=== PATIENT | male | born 1945 | race African-American/Black ===

== ENCOUNTER 2016-09-30 05:57 | Inpatient (IN) | payer MEDICARE, MEDICAID ==
[~2016-09-30] VITALS: Ht 182.9 cm; Wt 68.0 kg
[2016-09-30] MEDS ORDERED: MORPHINE SULFATE 4 MG/ML CPJ (NOT FOR IM USE) IV ONE (07:00)
[2016-09-30] MEDS ORDERED: ACETAMINOPHEN 325MG TABLET PO ONE (07:00)
[2016-09-30 07:22] LABS: HEMATOCRIT. 34.3 % (42.0-52.0); MEAN CORPUSCULAR HEMOGLOBIN 26.6 pg (28.0-32.0); MEAN CORPUSCULAR VOLUME 82.9 fL (80.0-94.0); PLATELET 227 x1000/uL (130-400); RED BLOOD CELL COUNT 4.14 mill/uL (4.7-6.1); RED CELL DISTRIBUTION WIDTH 18.3 % (11.6-14.6)
[2016-09-30 07:27] LABS: INR 1.1; PROTHROMBIN TIME 11.9 sec
[2016-09-30 07:34] LABS: CARBON DIOXIDE 30 mEq/L (21-32); CHLORIDE 98 mEq/L (98-107)
[2016-09-30 08:27] LABS: PLATELET ESTIMATE NORMAL
[2016-09-30] MEDS ORDERED: METRONIDAZOLE 500 MG PREMIX 100 ML IV ONE (09:15)
[2016-09-30] MEDS ORDERED: LEVOFLOXACIN 750MG PREMIX 150 ML IV ONE (09:15)
[2016-09-30] MEDS ORDERED: POTASSIUM CHLORIDE 20MEQ TABLET SR PO ONE (10:30)
[2016-09-30 12:52] VITALS: BP 105/77
[2016-09-30 12:53] VITALS: BP 105/77
[2016-09-30] MEDS ORDERED: TAMS0.4C31 PO (13:12)
[2016-09-30] MEDS ORDERED: AMLO10TA80 PO (13:15)
[2016-09-30] MEDS ORDERED: FS300 PO (13:15)
[2016-09-30] MEDS ORDERED: GABA-531 PO (13:15)
[2016-09-30] MEDS ORDERED: methadone PO (13:17)
[2016-09-30 16:00] VITALS: BP 94/55
[2016-09-30] MEDS ORDERED: METHADONE HCL 10MG TABLET PO SCH ×2 (16:30)
[2016-09-30] MEDS: AMLODIPINE 10MG TABLET PO SCH (16:30)
[2016-09-30] MEDS ORDERED: CLONIDINE 0.1MG TABLET PO PRN (16:30)
[2016-09-30] MEDS ORDERED: ONDANSETRON HCL 4MG/2ML VIAL IV PRN (16:30)
[2016-09-30] MEDS ORDERED: GUAIFENESIN 200MG/10ML SUGAR FREE UDC PO PRN (16:30)
[2016-09-30] MEDS: TAMSULOSIN HCL 0.4MG SR CAPSULE PO SCH (16:43)
[2016-09-30] MEDS: GABAPENTIN 300MG CAPSULE PO SCH (17:06)
[2016-09-30] MEDS: METHADONE HCL 10MG TABLET PO SCH (17:06)
[2016-09-30] MEDS: DEXT 5%/0.45% NACL KCL 10MEQ/L 1,000 ML IV SCH (17:26)
[2016-09-30 20:00] VITALS: BP 95/50
[2016-09-30] MEDS ORDERED: MOME13HF2 INH (21:23)
[2016-09-30] MEDS: METRONIDAZOLE 500 MG PREMIX 100 ML IV SCH (21:54)
[2016-10-01 00:05] VITALS: BP 101/68
[2016-10-01 04:00] VITALS: BP 109/64
[2016-10-01] MEDS: METRONIDAZOLE 500 MG PREMIX 100 ML IV SCH ×3 (05:31→22:58)
[2016-10-01] MEDS: DEXT 5%/0.45% NACL KCL 10MEQ/L 1,000 ML IV SCH ×2 (05:31→20:41)
[2016-10-01 06:40] LABS: HEMATOCRIT. 30.5 % (42.0-52.0); HEMOGLOBIN. 9.8 g/dL (14.0-18.0); MEAN CORPUSCULAR HEMOGLOBIN 26.4 pg (28.0-32.0); MEAN CORPUSCULAR VOLUME 82.5 fL (80.0-94.0); MEAN PLATELET VOLUME 8.3 fl (7.4-10.4); PLATELET 219 x1000/uL (130-400)
[2016-10-01] MEDS: ALBUTEROL (0.083%) 2.5MG/3ML NEB HHN SCH (07:42)
[2016-10-01 08:00] VITALS: BP 102/61
[2016-10-01 08:03] LABS: CARBON DIOXIDE 33 mEq/L (21-32); CHLORIDE 101 mEq/L (98-107)
[2016-10-01 08:10] LABS: PLATELET ESTIMATE NORMAL
[2016-10-01] MEDS: GABAPENTIN 300MG CAPSULE PO SCH (08:33)
[2016-10-01] MEDS: METHADONE HCL 10MG TABLET PO SCH (08:33)
[2016-10-01] MEDS: AMLODIPINE 10MG TABLET PO SCH (08:33)
[2016-10-01] MEDS: TAMSULOSIN HCL 0.4MG SR CAPSULE PO SCH ×2 (08:34→16:40)
[2016-10-01] MEDS: LEVOFLOXACIN 500MG PREMIX 100 ML IV SCH (08:35)
[2016-10-01] MEDS ORDERED: IPRATROPIUM/ALBUTEROL 0.5-3(2.5)MG/3ML NEB HHN PRN (10:30)
[2016-10-01 12:35] VITALS: BP 98/59
[2016-10-01] MEDS: BUDESONIDE 0.5MG/2ML NEB HHN SCH ×2 (12:57→20:08)
[2016-10-01] MEDS: IPRATROPIUM/ALBUTEROL 0.5-3(2.5)MG/3ML NEB HHN SCH ×2 (12:57→20:08)
[2016-10-01 16:00] VITALS: BP 101/63
[2016-10-01 20:00] VITALS: BP 118/81
[2016-10-02 00:03] VITALS: BP 104/60
[2016-10-02] MEDS: IPRATROPIUM/ALBUTEROL 0.5-3(2.5)MG/3ML NEB HHN SCH ×2 (01:54→21:07)
[2016-10-02 04:00] VITALS: BP 108/59
[2016-10-02] MEDS: METRONIDAZOLE 500 MG PREMIX 100 ML IV SCH ×3 (05:18→20:56)
[2016-10-02] MEDS: BUDESONIDE 0.5MG/2ML NEB HHN SCH ×3 (07:42→21:08)
[2016-10-02 08:00] VITALS: BP 124/76
[2016-10-02] MEDS: ALBUTEROL (0.083%) 2.5MG/3ML NEB HHN SCH ×2 (08:11→14:58)
[2016-10-02 08:45] LABS: HEMATOCRIT. 32.1 % (42.0-52.0); HEMOGLOBIN. 10.6 g/dL (14.0-18.0); MEAN CORPUSCULAR HEMOGLOBIN 27.2 pg (28.0-32.0); MEAN CORPUSCULAR VOLUME 82.2 fL (80.0-94.0); MEAN PLATELET VOLUME 7.6 fl (7.4-10.4); PLATELET 243 x1000/uL (130-400); RED CELL DISTRIBUTION WIDTH 17.9 % (11.6-14.6)
[2016-10-02] MEDS: LEVOFLOXACIN 500MG PREMIX 100 ML IV SCH (08:55)
[2016-10-02] MEDS: TAMSULOSIN HCL 0.4MG SR CAPSULE PO SCH ×2 (08:56→16:13)
[2016-10-02] MEDS: AMLODIPINE 10MG TABLET PO SCH (08:56)
[2016-10-02] MEDS: GABAPENTIN 300MG CAPSULE PO SCH (08:56)
[2016-10-02] MEDS: DEXT 5%/0.45% NACL KCL 10MEQ/L 1,000 ML IV SCH ×2 (08:57→22:53)
[2016-10-02] MEDS: METHADONE HCL 10MG TABLET PO SCH (08:57)
[2016-10-02 09:06] LABS: CARBON DIOXIDE 31 mEq/L (21-32); CHLORIDE 98 mEq/L (98-107)
[2016-10-02 12:00] VITALS: BP 118/67
[2016-10-02 13:33] LABS: PLATELET ESTIMATE NORMAL
[2016-10-02] MEDS ORDERED: POTASSIUM CHLORIDE 20MEQ TABLET SR PO SCH (13:45)
[2016-10-02] MEDS ORDERED: MAGNESIUM 2 G PREMIX 50 ML IV SCH (14:00)
[2016-10-02 16:00] VITALS: BP 113/62
[2016-10-02 20:00] VITALS: BP 111/68
[2016-10-03] MEDS: IPRATROPIUM/ALBUTEROL 0.5-3(2.5)MG/3ML NEB HHN SCH ×6 (00:56→20:08)
[2016-10-03] MEDS: ACETAMINOPHEN 325MG TABLET PO PRN (03:22)
[2016-10-03] MEDS: METRONIDAZOLE 500 MG PREMIX 100 ML IV SCH ×3 (05:09→21:57)
[2016-10-03 08:00] VITALS: BP 106/72
[2016-10-03] MEDS: BUDESONIDE 0.5MG/2ML NEB HHN SCH (08:16)
[2016-10-03 08:38] LABS: HEMATOCRIT. 28.3 % (42.0-52.0); HEMOGLOBIN. 9.3 g/dL (14.0-18.0); MEAN CORPUSCULAR HEMOGLOBIN 26.8 pg (28.0-32.0); MEAN CORPUSCULAR VOLUME 81.7 fL (80.0-94.0); MEAN PLATELET VOLUME 8.1 fl (7.4-10.4); PLATELET 228 x1000/uL (130-400); RED BLOOD CELL COUNT 3.47 mill/uL (4.7-6.1)
[2016-10-03 08:50] LABS: CARBON DIOXIDE 31 mEq/L (21-32); CHLORIDE 99 mEq/L (98-107)
[2016-10-03] MEDS: LEVOFLOXACIN 500MG PREMIX 100 ML IV SCH (10:31)
[2016-10-03] MEDS: TAMSULOSIN HCL 0.4MG SR CAPSULE PO SCH ×2 (10:33→18:08)
[2016-10-03] MEDS: GABAPENTIN 300MG CAPSULE PO SCH (10:34)
[2016-10-03] MEDS: METHADONE HCL 10MG TABLET PO SCH (10:34)
[2016-10-03] MEDS: AMLODIPINE 10MG TABLET PO SCH ×2 (10:35→18:03)
[2016-10-03 12:00] VITALS: BP 104/70
[2016-10-03] MEDS: DEXT 5%/0.45% NACL KCL 10MEQ/L 1,000 ML IV SCH (14:08)
[2016-10-03 14:21] LABS: PLATELET ESTIMATE NORMAL
[2016-10-03 16:00] VITALS: BP 100/72
[2016-10-03] MEDS ORDERED: CAPSAICIN 0.075% CREAM 60GM TOP PRN (18:00)
[2016-10-03 20:00] VITALS: BP 105/66
[2016-10-03] MEDS: HYDROMORPHONE HCL/PF 2MG/ML CPJ IV PRN (22:05)
[2016-10-04] VITALS: BP 111/64
[2016-10-04] MEDS: IPRATROPIUM/ALBUTEROL 0.5-3(2.5)MG/3ML NEB HHN SCH ×4 (01:43→20:44)
[2016-10-04 04:00] VITALS: BP 111/66
[2016-10-04] MEDS: ACETAMINOPHEN 325MG TABLET PO PRN (04:59)
[2016-10-04] MEDS: DEXT 5%/0.45% NACL KCL 10MEQ/L 1,000 ML IV SCH (05:54)
[2016-10-04] MEDS: METRONIDAZOLE 500 MG PREMIX 100 ML IV SCH ×3 (05:55→22:15)
[2016-10-04] MEDS: TAMSULOSIN HCL 0.4MG SR CAPSULE PO SCH ×2 (07:56→20:52)
[2016-10-04] MEDS: GABAPENTIN 300MG CAPSULE PO SCH (07:56)
[2016-10-04] MEDS: METHADONE HCL 10MG TABLET PO SCH (07:58)
[2016-10-04] MEDS: AMLODIPINE 10MG TABLET PO SCH (07:59)
[2016-10-04 08:00] VITALS: BP 101/69
[2016-10-04] MEDS: BUDESONIDE 0.5MG/2ML NEB HHN SCH (08:22)
[2016-10-04] MEDS: LEVOFLOXACIN 500MG PREMIX 100 ML IV SCH (10:04)
[2016-10-04 12:00] VITALS: BP 125/77
[2016-10-04] MEDS ORDERED: POTASSIUM CHLORIDE 20MEQ TABLET SR PO NR (12:45)
[2016-10-04 16:00] VITALS: BP 101/63
[2016-10-04 20:00] VITALS: BP 108/68
[2016-10-04] MEDS: HYDROMORPHONE HCL/PF 2MG/ML CPJ IV PRN (22:25)
[2016-10-05] VITALS: BP 102/57
[2016-10-05] MEDS: IPRATROPIUM/ALBUTEROL 0.5-3(2.5)MG/3ML NEB HHN SCH ×2 (01:00→09:33)
[2016-10-05] MEDS: DEXT 5%/0.45% NACL KCL 10MEQ/L 1,000 ML IV SCH (01:01)
[2016-10-05 04:00] VITALS: BP 115/76
[2016-10-05] MEDS: METRONIDAZOLE 500 MG PREMIX 100 ML IV SCH (06:00)
[2016-10-05 06:22] LABS: HEMATOCRIT. 28.7 % (42.0-52.0); HEMOGLOBIN. 9.4 g/dL (14.0-18.0); MEAN CORPUSCULAR HEMOGLOBIN 26.8 pg (28.0-32.0); MEAN CORPUSCULAR VOLUME 81.5 fL (80.0-94.0); MEAN PLATELET VOLUME 7.5 fl (7.4-10.4); PLATELET 257 x1000/uL (130-400); RED BLOOD CELL COUNT 3.52 mill/uL (4.7-6.1); RED CELL DISTRIBUTION WIDTH 18.3 % (11.6-14.6)
[2016-10-05 06:34] LABS: CARBON DIOXIDE 31 mEq/L (21-32); CHLORIDE 96 mEq/L (98-107)
[2016-10-05 08:00] VITALS: BP 110/69
[2016-10-05] MEDS: LEVOFLOXACIN 500MG PREMIX 100 ML IV SCH (09:00)
[2016-10-05] MEDS: AMLODIPINE 10MG TABLET PO SCH (09:00)
[2016-10-05] MEDS: GABAPENTIN 300MG CAPSULE PO SCH (09:23)
[2016-10-05] MEDS: TAMSULOSIN HCL 0.4MG SR CAPSULE PO SCH (09:24)
[2016-10-05] MEDS: METHADONE HCL 10MG TABLET PO SCH (09:25)
[2016-10-05] MEDS ORDERED: MAGNESIUM OXIDE 400MG TABLET PO SCH (11:45)
[2016-10-05 11:58] VITALS: BP 101/62
[2016-10-05 12:46] VITALS: BP 101/69
[2016-10-05 13:03] LABS: PLATELET ESTIMATE NORMAL
== END 2016-10-05 13:45 | disposition home or self-care (01) | DRG 391 ==
LOC: ER 05:58 → 7WST 10:57 → EDBEDREQSVC 11:00 → EDBEDREQ 11:00 → ENRESERV 11:31
PROVIDERS: ADMIT Hospitalist; ATTEND Hospitalist
DX: A08.4 Viral intestinal infection, unspecified (principal); E43 Unspecified severe protein-calorie malnutrition; R65.11 Systemic inflammatory response syndrome (SIRS) of non-infectious origin with acute organ dysfunction; E87.6 Hypokalemia; J44.9 Chronic obstructive pulmonary disease, unspecified; I10 Essential (primary) hypertension; E83.42 Hypomagnesemia; F17.210 Nicotine dependence, cigarettes, uncomplicated; F14.90 Cocaine use, unspecified, uncomplicated; F11.90 Opioid use, unspecified, uncomplicated; F19.90 Other psychoactive substance use, unspecified, uncomplicated; Z68.20 Body mass index [BMI] 20.0-20.9, adult; Z79.899 Other long term (current) drug therapy; Z72.89 Other problems related to lifestyle; Z71.6 Tobacco abuse counseling
CPT/HCPCS: 36415; 71010; 74176; 80053; 83605; 83735; 85025; 85610; 87040; 93005; 93970; 94640; 94664; 96365; 96367; 96375; 99285; 99406; J1170; J1956; J2270; J2405; J3475; J3490; J7611; J7620; J7626